=== PATIENT | male | born 1985 | race Caucasian/White ===

== ENCOUNTER 2016-08-16 16:52 | Emergency (ER) | payer OTHER ==
[2016-08-16 17:27] VITALS: BP 140/86; PULSE 72; RESP 20; TEMP 97.5
--- NOTE | 2016-08-16 18:24 | ED ---
ENT HPI - General Chief complaint: Dental/Oral Stated complaint: Dental Abscess, facial pain Time Seen by Provider: 08/16/16 17:38 Source: patient, RN notes reviewed, old records reviewed Mode of arrival: ambulatory Limitations: no limitations - History of Present Illness Initial comments: Patient is a 31-year-old male with a chief complaint of facial pain for one month after sustaining a nasal fracture. Patient reports that he has a shooting pain that reads from his nose around his face. He denies any changes in vision, fever or chills, or swelling of the face. He reports he was told nasal fracture approximately 18 places, he states that this was diagnosed in [place]. He denies any recent trauma or recent exact causes of pain. Patient reports that he was supposed to follow-up with a ENT specialist however he missed his appointment. Patient reports that he is in significant pain. - Related Data Home Medications Medication Instructions Recorded Confirmed Buprenorphine HCl/Naloxone HCl 1 film SL TID 08/16/16 08/16/16 [Suboxone 8 mg-2 mg Sl Film] Ibuprofen [Motrin] 200 - 400 mg PO Q6HR PRN 08/16/16 08/16/16 Previous Rx's Medication Instructions Recorded Penicillin V Potassium [Pen Vee K] 500 mg PO QID #40 tab 08/16/16 traMADol HCl [Ultram] 50 mg PO Q4H PRN #12 tab 08/16/16 Allergies Allergy/AdvReac Type Severity Reaction Status Date / Time tramadol Allergy Unknown Verified 08/16/16 17:56 Review of Systems ROS Statement: Those systems with pertinent positive or pertinent negative responses have been documented in the HPI. ROS Other: All systems not noted in ROS Statement are negative. Past Medical History Past Medical History: No Reported History History of Any Multi-Drug Resistant Organisms: None Reported Additional Past Surgical History / Comment(s): oral surgery Past Psychological History: No Psychological Hx Reported Smoking Status: Current every day smoker Past Alcohol Use History: None Reported Past Drug Use History: None Reported General Exam Limitations: no limitations General appearance: alert, in no apparent distress Head exam: Present: atraumatic, normocephalic, normal inspection Eye exam: Present: normal appearance, PERRL, EOMI. Absent: scleral icterus, conjunctival injection, periorbital swelling ENT exam: Present: normal exam, mucous membranes moist, other (patient has evidence of a deviated septum. No occusion or septal hematoma. ) Neck exam: Present: normal inspection. Absent: tenderness, meningismus, lymphadenopathy Respiratory exam: Present: normal lung sounds bilaterally. Absent: respiratory distress, wheezes, rales, rhonchi, stridor Cardiovascular Exam: Present: regular rate, normal rhythm, normal heart sounds. Absent: systolic murmur, diastolic murmur, rubs, gallop, clicks GI/Abdominal exam: Present: soft, normal bowel sounds. Absent: distended, tenderness, guarding, rebound, rigid Extremities exam: Present: normal inspection, full ROM, normal capillary refill. Absent: tenderness, pedal edema, joint swelling, calf tenderness Back exam: Present: normal inspection Neurological exam: Present: alert, oriented X3, CN II-XII intact Psychiatric exam: Present: normal affect, normal mood Skin exam: Present: warm, dry, intact, normal color. Absent: rash Course Vital Signs 08/16/16 17:26 Temperature 97.5 F L Pulse Rate 72 Respiratory 20 Rate Blood Pressure 140/86 O2 Sat by Pulse 98 Oximetry Medical Decision Making - Medical Decision Making Patient is a 31-year-old male chief complaint of facial pain proximally 1 month after sustaining a facial trauma where he broke his nose. The nose is visually crooked. Patient reports that there is a shooting pain that radiates down his face. Patient did not disclose that he is currently taking Suboxone. Maps report was ran and he received 90 Suboxone approximately 7 days ago. I discussed that there is not much we're able to do for the pain, except tramadol , which he is allergic to. He states that he had an upset stomach from the tramadol, no acute allergic reaction. Patient reports he thinks he has a dental infection as well. Patient will be given pen vk, tramadol starter pack. I advised him to follow-up with a ENT specialist. Disposition Clinical Impression: History of facial fracture Disposition: HOME SELF-CARE Condition: Good Instructions: Facial Fracture (ED) Additional Instructions: Patient advised to follow up with ENT and facial bone specialist. Prescriptions: Penicillin V Potassium [Pen Vee K] 500 mg PO QID #40 tab traMADol HCl [Ultram] 50 mg PO Q4H PRN #12 tab PRN Reason: Pain Referrals: Dirk Johnson DO [Doctor of Osteopathic Medicine] - 1-2 days Time of Disposition: 18:24
[2016-08-16] MEDS ORDERED: traMADol 50 MG STARTER PACK 3 TAB BTL PO STA (18:28)
[2016-08-16] MEDS ORDERED: PENICILLIN VK 500MG STARTER 4 TAB BTL PO STA (18:28)
== END 2016-08-16 18:40 | disposition home or self-care (01) ==
LOC: EC 16:52
DX: S02.2XXA Fracture of nasal bones, initial encounter for closed fracture (principal); F17.200 Nicotine dependence, unspecified, uncomplicated; Z79.899 Other long term (current) drug therapy; Z88.6 Allergy status to analgesic agent; X58.XXXA Exposure to other specified factors, initial encounter
CPT/HCPCS: 99283